=== PATIENT | male | born 1955 | race Hispanic/Latino ===

== ENCOUNTER 2020-04-02 13:11 | Inpatient (IN) | payer MEDICARE ==
[~2020-04-02] VITALS: Ht 175.3 cm; Wt 109.3 kg
[2020-04-02] MEDS ORDERED: LOSARTAN POTAS100 MG PO (13:33)
[2020-04-02] MEDS ORDERED: METFORMIN HCL850 MG PO (13:33)
[2020-04-02] MEDS ORDERED: ATORVASTATIN CA40 MG PO (13:33)
[2020-04-02] MEDS ORDERED: GABAPENTIN400 MG PO (13:33)
[2020-04-02] MEDS ORDERED: CENTRUM SILVER1 EAC6 PO (13:33)
[2020-04-02] MEDS ORDERED: METOPROLOL TART50 MG PO (13:33)
[2020-04-02] MEDS ORDERED: ASPIRIN81 MG PO (13:33)
--- NOTE | 2020-04-02 13:33 | Emergency Department Note ---
History of Present Illnes History of Present Illness Chief Complaint: Chest Pain History of Present Illness This is a 64 year old male Chief Complaint Comment Patient in from Dr. Castellanos's office with reports of chest pain with a stress test and abnormal EKG. Patient reports he was sent to Dr. Castellanos by his PCP for complaints of chest pain. Patient denies pain at this time. Positive history of stenting about 6 years ago. Historian: Patient Arrival Mode: Car Scoop Driver Required: No Onset (how long ago): day(s) Location: Chest Quality: Pressure Radiation: Reports non-radiation Severity: mild Onset quality: unable to specify Duration (how long): day(s) Timing of current episode: sporadic Progression: resolved Chronicity: new Context: Denies recent illness, Denies recent surgery Relieving factors: none Exacerbating factors: none Associated symptoms: Reports denies other symptoms Treatments prior to arrival: none Past Medical/Family History Physician Review I have reviewed the patient's past medical and family history. Any updates have been documented here. Past Medical History Recent Fever: No Clinical Suspicion of Infectio: No New/Unexplained Change in Ment: No Past Medical History: Hypertension, Diabetes, COPD, Hyperlipedemia Past Surgical History: PCI, Hernia Repair Review of Systems Review of Systems Constitutional: Reports no symptoms EENTM: Reports no symptoms Cardiovascular: Reports no symptoms Respiratory: Reports no symptoms Gastrointestinal: Reports no symptoms Genitourinary: Reports no symptoms Musculoskeletal: Reports no symptoms Integumentary: Reports no symptoms Neurological: Reports no symptoms Psychological: Reports no symptoms Endocrine: Reports no symptoms Hematological/Lymphatic: Reports no symptoms Physical Exam Related Data Allergies: Coded Allergies: No Known Allergies (Unverified , 04/02/20) Triage Vital Signs Vital Signs Date Time Temp Pulse Resp B/P (MAP) Pulse Ox O2 Delivery O2 Flow Rate FiO2 04/02/20 13:18 97.7 78 20 100 Room Air Vital signs reviewed: Yes Physical Exam CONSTITUTIONAL Constitutional: Present well-developed, Present well-nourished HENT HENT: Present normocephalic, Present atraumatic, Present oropharynx clear/mois t, Present nose normal HENT L/R: Present left ext ear normal, Present right ext ear normal EYES Eyes: Reports PERRL, Reports conjunctivae normal NECK Neck: Present ROM normal PULMONARY Pulmonary: Present effort normal, Present breath sounds normal CARDIOVASCULAR Cardiovascular: Present regular rhythm, Present heart sounds normal, Present capillary refill normal, Present normal rate GASTROINTESTINAL Abdominal: Present soft, Present nontender, Present bowel sounds normal GENITOURINARY Genitourinary: Present exam deferred SKIN Skin: Present warm, Present dry MUSCULOSKELETAL Musculoskeletal: Present ROM normal NEUROLOGICAL Neurological: Present alert, Present oriented x 3, Present no gross motor or sensory deficits PSYCHOLOGICAL Psychological: Present mood/affect normal, Present judgement normal Results Laboratory Lab results reviewed: Yes Imaging Imaging results reviewed: Yes Diagnostics Tests Diagnostic test(s) reviewed: Yes Procedures 12 Lead ECG Interpretation ECG Interpretation : Scoop Driver: Interpreted by ED physician Date: Apr 02, 2020 Rhythm: sinus rhythm Rate: normal QRS axis: normal ST segments normal: Yes T waves normal: Yes T wave inversion: aVL Clinical Impression: non-specific ECG Assessment & Plan Medical Decision Making SOLOMON 64-year-old male presents to emergency department via requested Dr. Castellanos for unstable angina. He states that over the last few days he'll get intermittent chest pain even while at rest. He currently has no chest pain or any complaints. Patient will be admitted for unstable angina to see Dr. Castellanos in the morning. No heparin per Jasmin. Admitted to Dr. Almazan Reassessment Reassessment time: 14:08 Reassessment Well appearing, NAd Assessment & Plan Final Impression: (1) Unstable angina Depart Disposition: ADMITTED Last Vital Signs Date Time Temp Pulse Resp B/P (MAP) Pulse Ox O2 Delivery O2 Flow Rate FiO2 04/02/20 13:18 97.7 78 20 100 Room Air Home Meds Reported Medications Multivit-Min/FA/Lycopen/Lutein (Centrum Silver Men Tablet) 1 Each Tablet, 1 TAB PO BID 04/02/20 Atorvastatin Calcium (ATORVASTATIN CALCIUM) 40 Mg Tablet, 40 MG PO HS, #30 TAB 04/02/20 Metformin Hcl (METFORMIN HCL) 850 Mg Tablet, 800 MG PO BID, #30 TAB 04/02/20 Gabapentin (GABAPENTIN) 400 Mg Capsule, 400 MG PO BID, #30 CAP 04/02/20 Metoprolol Tartrate (METOPROLOL TARTRATE) 50 Mg Tablet, 50 MG PO BID, TAB 04/02/20 Aspirin (ASPIRIN) 81 Mg Tab.chew, 1 TAB PO DAILY 04/02/20 Losartan Potassium (LOSARTAN POTASSIUM) 100 Mg Tablet, 100 MG PO DAILY, TAB 04/02/20 WALTER ERICKSON MD Apr 02, 2020 13:33
[2020-04-02 13:34] LABS: BASOPHILS % 0.3 % (0.0-1.0); EOSINOPHILS # (AUTO) 0.2 (0.0-0.4); EOSINOPHILS % 2.6 % (0.0-6.0); HEMATOCRIT 34.3 % (38.2-49.6); HEMOGLOBIN 11.1 g/dL (14.0-18.0); LYMPHOCYTES # (AUTO) 1.5 (1.0-3.2); LYMPHOCYTES % 16.9 % (18.0-39.1); MEAN CORPUSCULAR HEMOGLOBIN 30.6 pg (28-32); MEAN CORPUSCULAR HGB CONC 32.4 g/dL (31-35); MEAN CORPUSCULAR VOLUME 94.5 fL (81-99); MONOCYTES # (AUTO) 0.6 (0.2-0.8); MONOCYTES % 6.7 % (4.4-11.3); NEUTROPHILS # (AUTO) 6.6 (2.1-6.9); NEUTROPHILS % 73.1 % (38.7-80.0); PLATELET COUNT 243 x10e3/uL (140-360); RED BLOOD COUNT 3.63 x10e6/uL (4.3-5.7); RED CELL DISTRIBUTION WIDTH 13.2 % (11.7-14.4)
--- NOTE | 2020-04-02 13:55 | Diagnostic Imaging Report ---
X-ray chest frontal view History: Chest pain, abnormal EKG during stress test Comparison: None Findings: Lines and tubes: Not applicable Central airways: Unremarkable Cardiac silhouette: Unremarkable Mediastinal silhouettes: Unremarkable Pleura: No pleural effusion, pneumothorax or thickening Diaphragms: Unremarkable Lungs: No focal lung disease Skeletal structures: Unremarkable Extrathoracic soft tissues: Unremarkable Impression: As above. Signed by: Min Bess MD on 04/02/2020 1:52 PM
--- OUTSIDE RECORDS SUMMARY | 2020-04-02 13:55 | XMS REPORT | Continuity of Care Document ---
Author Author [facility] t Organization [facility] Address [address] [place] [address] Phone Unavailable Care Team Providers Care Trim Master Operator Name Role Phone Unavailable Unavailable Payers Payer Name Policy Type Policy Number Effective Date Expiration Date S ource Problems This patient has no known problems. Allergies, Adverse Reactions, Alerts Allergy Name Allergy Type Status Severity Reaction(s) Onset Date Inacti ve Date Treating Clinician Comments Source No Known Allergies DA Active U 2011-07-11 00:00:00 [facility] Medications This patient has no known medications. Procedures This patient has no known procedures. Results This patient has no known results.
[2020-04-02 13:56] LABS: ALBUMIN 3.6 g/dL (3.5-5.0); ALBUMIN/GLOBULIN RATIO 1.2 (0.8-2.0); ANION GAP 10.3 mmol/L (8-16); CALCIUM 9.2 mg/dL (8.4-10.2); CREATININE, SERUM 1.31 mg/dL (0.72-1.25); POTASSIUM 4.3 mmol/L (3.5-5.1)
--- OUTSIDE RECORDS SUMMARY | 2020-04-02 14:15 | XMS REPORT | Continuity of Care Document ---
Author Author [facility] t Organization [facility] Address [address] [place] [address] Phone Unavailable Care Team Providers Care Supervisor [employer] Name Role Phone Marci Love Unavailable Payers Payer Name Policy Type Policy Number Effective Date Expiration Date S ource Problems This patient has no known problems. Allergies, Adverse Reactions, Alerts Allergy Name Allergy Type Status Severity Reaction(s) Onset Date Inacti ve Date Treating Clinician Comments Source No Known Allergies DA Active U 2011-07-11 00:00:00 [facility] Medications This patient has no known medications. Procedures This patient has no known procedures. Results Test Description Test Time Test Comments Results Result Comments Source CHEST SINGLE (PORTABLE) 2020-04-02 13:51:00 [facility] 1955 Sex: M [facility] [address] [place] [address] Patient Name: JOVANNA JEFFREY MR #: [id number] : 1955 Age/Sex: 64/M Req #: [id number] [facility] Physician: Ordered by: Walter Love MD Report #: [id number] Location: ER Room/Bed: Procedure: [id number] DX/CHEST SINGLE (PORTABLE) Exam Date: 04/02/20 Exam Time: 1340 REPORT STATUS: Signed X-ray chest frontal view History: Chest pain, abnormal EKG during stress test Comparison: None Findings: Lines and tubes: Not applicable Central airways: Unremarkable Cardiac silhouette: Unremarkable Mediastinal silhouettes: Unremarkable Pleura: No pleural effusion, pneumothorax or thickening Diaphragms: Unremarkable Lungs: No focal lung disease Skeletal structures: Unremarkable Extrathoracic soft tissues: Unremarkable Impression: As above. Signed by: Robert Brooke MD on 04/02/2020 1:52 PM Dictated By: ROBERT BROOKE MD [id number] Transcribed By: NANDO on 04/02/20 1352 COPY TO: WALTER LOVE MD
[2020-04-02 15:25] VITALS: BP 149/80
[2020-04-02 15:35] VITALS: BP 149/80
--- NOTE | 2020-04-02 15:37 | NUR ---
patient received from ER via stretcher. family at BS. no c/o CP at this time. vitals stable. see admit assess. NPO after midnight for cath in am.
[2020-04-02] MEDS ORDERED: DEXTROSE 50% SYRINGE 50 ML IV PRN (16:30)
--- NOTE | 2020-04-02 17:43 | NUR ---
H&P cc: chest pain HPI: 64yoM, PCP , developed worsening chest pain, stress test reportedly done per patient, after testing sent to hospital for C. Pt does have mild chest discomfort; minimal sob. no dizziness PMH: HTN, HLD, Obesity, DM2, Diabetic neuropathy, CAD s/p 3 sents lsat 2013, current smoker, COPD PSHx: hernia; coronary stent Allergies; see emr Fh/Sh; ; 1ppd cigs meds; see MAR ROS; no f/c/s/n/V/D/EUCEDA/skin rash/confusion/dizziness/vision changes/leg pain/mood changes v/s; revd PE tired appearing anicteric ns1s2 REDUCED BS; SCATTERED WHEEZING soft n tnd 1+ LEG EDEMA skin dry n. affect a&ox3; [place] LABS/MEDS REVD A/P: 64yoM Unstable angina- cardioprotective meds; cardio consulted DAYAN vs CKD- f/u HLD- cont statin HTN- cont BB Obesity- 1/2 portion sizes outpt BMI 35- as above DM2- hab1c/lipids; hold metformin DIabetic neuropathy- gabapentin Peripheral edema- will need diuresis ProP: AC dispo; f/u SEAN CASTELLON MD PHD.
[2020-04-02 18:04] VITALS: BP 156/85
[2020-04-02] MEDS: METOPROLOL TARTRATE 50 MG TAB PO SCH (18:05)
[2020-04-02] MEDS: INSULIN REGULAR, HUMAN 100 UNIT/1 ML 3ML VIAL SQ SCH ×2 (18:06→20:45)
--- NOTE | 2020-04-02 18:24 | NUR ---
consent for cardiac cath obtained.
--- NOTE | 2020-04-02 19:35 | Consultation ---
DATE OF CONSULTATION: 04/02/2020 Cardiology Consultation REQUESTING PHYSICIAN: Star Almazan MD. REASON FOR CONSULTATION: Chest pain. HISTORY OF PRESENT ILLNESS: This is a 64-year-old male with history of coronary artery disease, status post multiple RCA PCI, hypertension, hyperlipidemia, diabetes mellitus, and COPD, who presents with complaints of chest pain. The patient reports he has been having chest pain for the last 2 weeks. He describes it as pressure, 3/10 in severity, lasting seconds at a time. On occasion, it will radiate to his arms, but otherwise he denies shortness of breath, nausea, or diaphoresis. He has not noticed any association with activity. He does note the pain occurs once or twice a day. In addition, he endorses shortness of breath when he carries heavy objects and edema with prolonged standing. REVIEW OF SYSTEMS: Negative except as per HPI. PAST MEDICAL HISTORY: 1. Coronary artery disease, status post HI and multiple RCA PCI. 2. Hypertension. 3. Hyperlipidemia. 4. Diabetes mellitus. 5. COPD. PAST SURGICAL HISTORY: Hernia repair. ALLERGIES: PLEASE SEE EMR. MEDICATIONS: Please see medication list. SOCIAL HISTORY: He smokes a pack a day for approximately 30 years. No alcohol or illicit drugs. PHYSICAL EXAMINATION: VITAL SIGNS: Temperature 97.8 degrees, pulse 80, respiratory rate 18, blood pressure 144/85, and oxygen saturation 95% on room air. GENERAL: Obese gentleman, in no acute distress, well-developed, well-nourished. HEENT: Normocephalic and atraumatic. Pupils are equal. No scleral icterus. NECK: Supple. No thyromegaly or cervical lymphadenopathy. No carotid bruits. LUNGS: Clear to auscultation bilaterally. No wheezes or crackles. CARDIOVASCULAR: Normal rate. Regular rhythm. No murmur. Normal S1 and S2. ABDOMEN: Soft and nontender. EXTREMITIES: Trace edema. NEUROLOGIC: Nonfocal exam. EKG; normal sinus rhythm, old inferior infarct. IMPRESSION: 1. Chest pain. 2. Coronary artery disease, status post RCA PCI. 3. Hypertension. 4. Hyperlipidemia. 5. Diabetes mellitus. 6. Chronic obstructive pulmonary disease. RECOMMENDATIONS: Trend troponin to rule out myocardial infarction. The patient had treadmill exercise done today in the office. He was noted to have horizontal ST-segment depression of 1 mm in V4 to V6. The patient will need to proceed with cardiac catheterization in the morning, n.p.o. after midnight. In the meantime, continue home cardiac medications. Monitor the patient closely on telemetry. Thank you for this consult. We will continue to continue to follow. Mary Baer MD ABS/RODRIGO /[id number]
[2020-04-02 20:30] VITALS: BP 133/67
[2020-04-02 20:45] VITALS: BP 133/67
[2020-04-02] MEDS: ATORVASTATIN 40 MG TAB PO SCH (20:45)
--- NOTE | 2020-04-02 20:45 | NUR ---
PATIENT RESTING IN BED IN STABLE CONDITION, NO SIGNS OF DISTRESS NOTED. VITALS ARE STABLE AND PATIENT VOICES NO PAIN AT THIS TIME. PATIENT IS VOICED UNDERSTANDING OF NPO AFTER MIDNIGHT FOR PROCEDURE THE NEXT DAY. BED IS IN LOWEST POSITION, BOTH SIDE RAILS ARE UP, CALL LIGHT IS WITHIN EASY REACH, WILL CONTINUE TO MONITOR.
[2020-04-02] MEDS ORDERED: NON-FORMULARY MEDICATION (Atorvastatin Calcium 40 MG) PO SCH (21:00)
[2020-04-03] VITALS (13 sets, daily range): BP systolic 127–153; BP diastolic 70–88
[2020-04-03 05:21] LABS: BASOPHILS % 0.3 % (0.0-1.0); EOSINOPHILS # (AUTO) 0.1 (0.0-0.4); HEMATOCRIT 35.7 % (38.2-49.6); HEMOGLOBIN 11.6 g/dL (14.0-18.0); LYMPHOCYTES # (AUTO) 1.6 (1.0-3.2); LYMPHOCYTES % 16.5 % (18.0-39.1); MEAN CORPUSCULAR HEMOGLOBIN 30.6 pg (28-32); MEAN CORPUSCULAR HGB CONC 32.5 g/dL (31-35); MEAN CORPUSCULAR VOLUME 94.2 fL (81-99); MONOCYTES # (AUTO) 0.5 (0.2-0.8); MONOCYTES % 5.6 % (4.4-11.3); NEUTROPHILS # (AUTO) 7.1 (2.1-6.9); NEUTROPHILS % 76.1 % (38.7-80.0); PLATELET COUNT 235 x10e3/uL (140-360); RED BLOOD COUNT 3.79 x10e6/uL (4.3-5.7); RED CELL DISTRIBUTION WIDTH 13.2 % (11.7-14.4)
[2020-04-03 05:42] LABS: ANION GAP 12.2 mmol/L (8-16); BLOOD UREA NITROGEN 26 mg/dL (7-26); BUN/CREATININE RATIO 22 (6-25); CALCIUM 8.9 mg/dL (8.4-10.2); CARBON DIOXIDE 30 mmol/L (22-29); CHLORIDE 104 mmol/L (98-107); CREATININE, SERUM 1.17 mg/dL (0.72-1.25); EST GLOMERULAR FILTRATION RATE > 60 ML/MIN (60-); GLUCOSE 84 mg/dL (74-118); POTASSIUM 4.2 mmol/L (3.5-5.1); SODIUM 142 mmol/L (136-145)
[2020-04-03 06:08] LABS: CHOL/HDL RATIO 3.6 (3.9-4.7)
--- NOTE | 2020-04-03 06:20 | NUR ---
IM- progress note O/N see below ROS; no f/c/s/n/V/D/EUCEDA/skin rash/confusion/dizziness/vision changes/leg pain/mood changes v/s; revd PE tired appearing anicteric ns1s2 REDUCED BS; SCATTERED WHEEZING soft n tnd 1+ LEG EDEMA skin dry n. affect a&ox3; [place] LABS/MEDS REVD A/P: 64yoM Unstable angina- cardioprotective meds; cardio consulted DAYAN vs CKD- f/u HLD- cont statin HTN- cont BB Obesity- 1/2 portion sizes outpt BMI 35- as above DM2- hab1c/LDL= ; hold metformin DIabetic neuropathy- gabapentin Peripheral edema- will need diuresis ProP: AC dispo; f/u [facility] SEAN CASTELLON MD PHD.
[2020-04-03] MEDS: INSULIN REGULAR, HUMAN 100 UNIT/1 ML 3ML VIAL SQ SCH ×4 (07:30→20:45)
[2020-04-03] MEDS: METOPROLOL TARTRATE 50 MG TAB PO SCH ×2 (09:00→17:47)
[2020-04-03] MEDS ORDERED: CLOPIDOGREL BISULFATE 75 MG TAB PO SCH (09:00)
[2020-04-03] MEDS ORDERED: LOSARTAN POTASSIUM 100 MG TAB PO SCH (09:00)
[2020-04-03] MEDS: GABAPENTIN 400 MG CAP PO SCH ×2 (09:00→17:46)
[2020-04-03] MEDS ORDERED: ASPIRIN 81 MG CHEW TAB PO SCH (09:00)
[2020-04-03] MEDS ORDERED: VERAPAMIL HCL 2.5 MG/ML 2 ML VIAL ONE (10:22)
[2020-04-03] MEDS ORDERED: MIDAZOLAM HCL 2 MG/2 ML VIAL ONE (10:22)
[2020-04-03] MEDS ORDERED: HEPARIN SOD/SOD CHLORIDE 2,000 ML ONE (10:23)
[2020-04-03] MEDS ORDERED: IOPAMIDOL 370 MG/ML 200 ML INFUS..BTL INJ ONE (10:23)
[2020-04-03] MEDS ORDERED: LIDOCAINE HCL 2% LOCAL 20 ML VIAL ONE (10:23)
[2020-04-03] MEDS ORDERED: SODIUM CHLORIDE 0.9% 1000ML 1,000 ML ONE (10:23)
[2020-04-03] MEDS ORDERED: FENTANYL CITRATE/PF 100MCG/2 ML INJ ONE (10:23)
--- NOTE | 2020-04-03 11:05 | NUR ---
PT OFF UNIT FOR PROCEDURE.
--- NOTE | 2020-04-03 12:05 | NUR ---
Report received from MAYTE RN. Alert oriented and appropriate, PERRLA, respirations even and unlabored to room air. Pulses x4 extremities equal and palpable . Cap fill brisk < 3 sec. + neurovascular function of right leg with secured 6fr sheath to right groin. No s/s of swelling or discolor at site. VS trend reviewed and medications given. Skin warm and dry integrity appears intact in general. IV left hand presents healthy w/o s/s of infiltration or complaint. Abdomen soft and supple. pt offered toileting, denies need to urinate or defecate. Resting supine. Pt verbalizes understanding of POC to return to floor. Educated try on baster light use. bed low and locked, side rails up x2 and call light at side. bedside monitoring initiated. pt using provided/ personal mask for COVID-19 mitigation. assumption of care -cgf
--- NOTE | 2020-04-03 12:15 | NUR ---
AR RTr pulling sheath. VS trend available, atropine at bedside. No gross deformities at this time.
--- NOTE | 2020-04-03 12:35 | NUR ---
Sheath pull complete uneventful. groin soft and supple, no discolor or bulging observed. right leg maintains color and pulses. Clean dressing applied. pt educated on bedrest and keeping leg strait.
--- NOTE | 2020-04-03 12:40 | NUR ---
Pt meets discharge criteria to return to floor. Report off to Faith RN. VS wnl, alert and oriented. Pt verbalizes understanding of bedrest instructions. Dr bojorquez saw pt as moving to floor. Overall general assess w/o gross outliers. Skin warm, dry, and intact. Right groin dressing soft w/o s/s of hematoma. Pedal pulses unchanged. IV intact. Pt maintains mask on for COVID 19 precautions being taken by bed on telemetry. Transfers w/o gross distress with chart. Request made form CD images for pt.
--- NOTE | 2020-04-03 13:04 | NUR ---
PT ARRIVED TO UNIT RESP EVEN AND UNLABORED NO C/O PAIN AT THIS TIME , PT RIGHT GROIN DRESSING CLEAN AND INTACT. CALL LIGHT IN REACH , WILL CONT TO MONITOR.
--- NOTE | 2020-04-03 13:34 | NUR ---
Spoke to [place] supervisor color making. States she will initiate transfer. CM left message for Dr. Almazan to notify him that Dr. Baer wants to transfer to [facility] for CABG.
--- NOTE | 2020-04-03 17:24 | Progress Note ---
DATE: Cardiology Progress Note SUBJECTIVE: The patient is feeling better. Denies any chest pain or shortness of breath. OBJECTIVE: VITAL SIGNS: He is afebrile, heart rate 78, respirations 16, blood pressure is 149/84, and oxygen saturation 99% on room air. GENERAL: Well-appearing, in no apparent distress. CARDIOVASCULAR: Regular rate and rhythm. LUNGS: Clear to auscultation. ABDOMEN: Soft, nontender, and nondistended. EXTREMITIES: No clubbing, cyanosis, or edema. VASCULAR: 2+ pulses. SKIN: Warm, dry, and intact. NEUROLOGIC: No focal deficits noted. LABORATORY DATA: Reviewed. CARDIOVASCULAR MEDICATIONS: Reviewed. Coronary angiography revealed multivessel coronary artery disease. IMPRESSION: 1. Precordial pain. 2. Coronary artery disease. 3. Hypertension. 4. Hyperlipidemia. 5. Diabetes mellitus. 6. Chronic obstructive pulmonary disease. RECOMMENDATIONS: Cardiac catheterization today revealed multivessel coronary artery disease. The patient will need to be off clopidogrel for 5 to 7 days. He will need coronary artery bypass graft surgery. We will need transfer to a facility that can provide this. DO OH Tucker/JOVANNYL /[id number]
--- NOTE | 2020-04-03 19:28 | NUR ---
WALKING ROUNDS COMPLETE, REPORT GIVEN TO ONCOMING NURSE.
[2020-04-03] MEDS: ATORVASTATIN 40 MG TAB PO SCH (20:45)
--- NOTE | 2020-04-03 21:12 | NUR ---
SPOKE TO [facility] TRANSFER [place]. SPOKE TO ALYSSA. PATIENT TRANSFER STILL PENDING BED AVAILABILITY. NO BED AVAILABLE AT THIS TIME. PM NURSE MADE AWARE.
[2020-04-04 00:44] VITALS: BP 128/73
--- NOTE | 2020-04-04 03:44 | NUR ---
PATIENT SAFELY ESCORTED VIA STRETCHER WITH EMS TO TRANSFER TO MEDICAL FACILITY. NO SIGNS OF DISTRESS NOTED.
--- NOTE | 2020-04-04 04:31 | NUR ---
AFTER PATIENT DEPARTED WITH EMS, LAB CALLED WITH A POSITIVE COVID RESULT FOR PATIENT. CALLED [facility] TO INFORM THEM OF PATIENT'S POSITIVE RESULT, HAD ALSO FAXED A COPY OF THE RESULTS WELL.
--- NOTE | 2020-04-04 08:49 | NUR ---
D/C summary Principal dx: Unstable angina- cardioprotective meds; cardio consulted Multivessel CAD- based on [facility]; send out to facility for CABG DAYAN vs CKD- f/u [facility]: HLD- cont statin HTN- cont BB Obesity- 1/2 portion sizes outpt BMI 35- as above DM2- hab1c/LDL= ; hold metformin DIabetic neuropathy- gabapentin Peripheral edema- will need diuresis ProP: AC dispo; f/u [facility] LC showed Multivessel Ds- transfer to facility for CABG d/c to nearby hospital for CABG stable f/u cardiology and CV surgery d/c>35mins SEAN CASTELLON MD PHD.
== END 2020-04-04 03:44 | disposition short-term general hospital (02) | DRG 287 ==
LOC: ER 13:14 → ERHOLD 14:13 → MED/SURG 14:58
PROVIDERS: ADMIT Internal Medicine; ATTEND Internal Medicine
PROC: 4A023N7 Measurement of Cardiac Sampling and Pressure, Left Heart, Percutaneous Approach (ICD-10-PCS; principal; 2020-04-03)
PROC: B2151ZZ Fluoroscopy of Left Heart using Low Osmolar Contrast (ICD-10-PCS; 2020-04-03)
PROC: B2111ZZ Fluoroscopy of Multiple Coronary Arteries using Low Osmolar Contrast (ICD-10-PCS; 2020-04-03)
DX: I25.110 Atherosclerotic heart disease of native coronary artery with unstable angina pectoris (principal); N17.9 Acute kidney failure, unspecified; F17.210 Nicotine dependence, cigarettes, uncomplicated; E78.5 Hyperlipidemia, unspecified; Z95.5 Presence of coronary angioplasty implant and graft; J44.9 Chronic obstructive pulmonary disease, unspecified; E11.9 Type 2 diabetes mellitus without complications; Z79.4 Long term (current) use of insulin; Z20.828 Contact with and (suspected) exposure to other viral communicable diseases; E11.40 Type 2 diabetes mellitus with diabetic neuropathy, unspecified; Z79.899 Other long term (current) drug therapy; E66.9 Obesity, unspecified; Z68.35 Body mass index [BMI] 35.0-35.9, adult; I12.9 Hypertensive chronic kidney disease with stage 1 through stage 4 chronic kidney disease, or unspecified chronic kidney disease; E11.22 Type 2 diabetes mellitus with diabetic chronic kidney disease; N18.9 Chronic kidney disease, unspecified
CPT/HCPCS: 36415; 71045; 80048; 80053; 80061; 83036; 84484; 85025; 93005; 93458; 99152; 99153; 99284; C1887; J1817; J2001; J2250; J3010; J7030; Q9967; U0002

== ENCOUNTER 2024-10-24 07:03 | Inpatient (IN) | payer MEDICARE ==
[2024-10-23 10:46] LABS: BASOPHILS % 0.4 % (0.0-1.0); EOSINOPHILS # (AUTO) 0.1 (0.0-0.4); EOSINOPHILS % 1.5 % (0.0-6.0); HEMATOCRIT 36.5 % (38.2-49.6); HEMOGLOBIN 10.5 g/dL (14.0-18.0); LYMPHOCYTES # (AUTO) 1.1 (1.0-3.2); LYMPHOCYTES % 13.8 % (18.0-39.1); MEAN CORPUSCULAR HEMOGLOBIN 26.1 pg (28-32); MEAN CORPUSCULAR HGB CONC 28.8 g/dL (31-35); MEAN CORPUSCULAR VOLUME 90.6 fL (81-99); MONOCYTES # (AUTO) 0.7 (0.2-0.8); MONOCYTES % 8.6 % (4.4-11.3); NEUTROPHILS # (AUTO) 6.2 (2.1-6.9); NEUTROPHILS % 75.3 % (38.7-80.0); PLATELET COUNT 226 x10e3/uL (140-360); RED BLOOD COUNT 4.03 x10e6/uL (4.3-5.7); RED CELL DISTRIBUTION WIDTH 16.5 % (11.7-14.4); WHITE BLOOD COUNT 8.16 x10e3/uL (4.8-10.8)
[2024-10-23 11:10] LABS: ANION GAP 13.5 mmol/L (8-16); CALCIUM 8.4 mg/dL (8.4-10.2); CREATININE, SERUM 1.16 mg/dL (0.72-1.25); POTASSIUM 4.5 mmol/L (3.5-5.1)
[~2024-10-24] VITALS: Ht 175.3 cm; Wt 122.2 kg
[~2024-10-24 07:03] MED LIST: ASPIRIN81 MG PO; ATORVASTATIN CA40 MG PO; CENTRUM SILVER1 EAC6 PO; CLOPIDOGREL75 MG PO; GABAPENTIN400 MG PO; LASIX40 MG PO; LOSARTAN POTAS100 MG PO; METFORMIN HCL850 MG PO; METOPROLOL TART50 MG PO; SOLIQUA 100 UNIT3 ML SQ
[2024-10-24] MEDS: SODIUM CHLORIDE 0.9% 1000ML 1,000 ML ONE (07:36)
[2024-10-24] MEDS: GENTAMICIN 80MG/NS 100 ML 200 ML IV ONE (07:37)
[2024-10-24] MEDS: PIPERACILLIN/TAZOBACTAM 3.375 GM VIAL ONE (07:37)
[2024-10-24] MEDS ORDERED: LIDOCAINE HCL 2% LOCAL INJ 5 ML SDV VIAL INJ ONE (08:42)
[2024-10-24] MEDS ORDERED: PROPOFOL IV EMULSION 10 MG/ML 20 ML VIAL ONE (08:42)
[2024-10-24] MEDS ORDERED: FENTANYL CITRATE/PF 100MCG/2 ML INJ ONE (08:42)
[2024-10-24] MEDS ORDERED: ONDANSETRON HCL INJ 2MG/ML 2ML 2 MG/ML VIAL ONE (11:12)
[2024-10-24] MEDS ORDERED: FAMOTIDINE 20 MG/2 ML VIAL IV ONE (11:12)
[2024-10-24] MEDS ORDERED: GLYCOPYRROLATE INJ 0.2 MG/ML VIAL ONE (11:12)
[2024-10-24] MEDS ORDERED: DEXAMETHASONE SOD PHOS INJ 4 MG/ML SDV ONE (11:12)
[2024-10-24] MEDS ORDERED: PHENYLEPHRINE HCL 1% 10 MG/ML VIAL ONE (11:25)
[2024-10-24] MEDS ORDERED: ALBUTEROL 90 MCG/ACT INHALER INH ONE (12:32)
[2024-10-24] MEDS ORDERED: ROCURONIUM BROMIDE 1 ML IV ONE (12:39)
[2024-10-24] MEDS: FENTANYL CITRATE/PF 100MCG/2 ML INJ IV ONE (13:18)
[2024-10-24] MEDS ORDERED: DIPHENHYDRAMINE HCL 25 MG CAP PO PRN (13:30)
[2024-10-24] MEDS ORDERED: ACETAMINOPHEN 1000 MG/100 ML IV PRN (13:30)
[2024-10-24] MEDS ORDERED: ONDANSETRON HCL INJ 2MG/ML 2ML 2 MG/ML VIAL IV PRN (13:30)
[2024-10-24] MEDS: HYDROCODONE PO ONE (14:12)
[2024-10-24] MEDS: APAP PO ONE (14:12)
[2024-10-24 14:41] LABS: BASOPHILS % 0.2 % (0.0-1.0); EOSINOPHILS # (AUTO) 0.1 (0.0-0.4); EOSINOPHILS % 0.5 % (0.0-6.0); HEMATOCRIT 36.7 % (38.2-49.6); HEMOGLOBIN 10.5 g/dL (14.0-18.0); LYMPHOCYTES # (AUTO) 1.3 (1.0-3.2); LYMPHOCYTES % 13.8 % (18.0-39.1); MEAN CORPUSCULAR HEMOGLOBIN 25.9 pg (28-32); MEAN CORPUSCULAR HGB CONC 28.6 g/dL (31-35); MEAN CORPUSCULAR VOLUME 90.6 fL (81-99); MONOCYTES # (AUTO) 0.3 (0.2-0.8); MONOCYTES % 3.6 % (4.4-11.3); NEUTROPHILS # (AUTO) 7.5 (2.1-6.9); NEUTROPHILS % 81.5 % (38.7-80.0); PLATELET COUNT 210 x10e3/uL (140-360); RED BLOOD COUNT 4.05 x10e6/uL (4.3-5.7); RED CELL DISTRIBUTION WIDTH 16.7 % (11.7-14.4); WHITE BLOOD COUNT 9.19 x10e3/uL (4.8-10.8)
[2024-10-24 15:06] LABS: CALCIUM 7.9 mg/dL (8.4-10.2); CREATININE, SERUM 1.15 mg/dL (0.72-1.25); MAGNESIUM 1.9 MG/DL (1.3-2.1)
[2024-10-24] MEDS: SENNA-S TABLET PO SCH (17:18)
[2024-10-24] MEDS: HYDROCODONE/APAP 10MG-325MG TAB ONE (17:18)
[2024-10-24] MEDS: SODIUM CHLORIDE 0.9% 1000ML 1,000 ML IV SCH (17:18)
[2024-10-24] MEDS: FENTANYL CITRATE/PF 100MCG/2 ML INJ ONE (17:19)
[2024-10-24] MEDS ORDERED: LEVOTHYROXINE50 MCG PO (18:10)
[2024-10-24] MEDS ORDERED: FLOMAX0.4 MG PO (18:10)
[2024-10-24] MEDS ORDERED: K-DUR10 MEQ PO (18:10)
[2024-10-24] MEDS ORDERED: PIOGLITAZONE HC45 MG PO (18:13)
[2024-10-24 18:21] VITALS: BP 149/72; PULSE 79; RESP 18; TEMP 97.4; O2SAT 98
[2024-10-24 18:24] VITALS: BP 178/90; PULSE 81; RESP 18; TEMP 97; O2SAT 97
[2024-10-24 20:00] VITALS: BP 162/82; PULSE 91; RESP 20; TEMP 97.3; O2SAT 94
[2024-10-24 21:00] VITALS: BP 162/82; PULSE 91; RESP 20; TEMP 97.3; O2SAT 94
[2024-10-24 23:47] VITALS: PULSE 83; RESP 18; O2SAT 93
[2024-10-25] VITALS (9 sets, daily range): BP systolic 116–153; BP diastolic 66–95; PULSE 68–84; RESP 18–20; TEMP 97.6–98.1; O2SAT 92–100
[2024-10-25] MEDS ORDERED: DEXTROSE 50% SYRINGE 50 ML IV PRN (07:45)
[2024-10-25 08:14] LABS: BASOPHILS % 0.2 % (0.0-1.0); EOSINOPHILS % 0.1 % (0.0-6.0); HEMATOCRIT 34.2 % (38.2-49.6); HEMOGLOBIN 9.6 g/dL (14.0-18.0); LYMPHOCYTES # (AUTO) 1.2 (1.0-3.2); LYMPHOCYTES % 13.8 % (18.0-39.1); MEAN CORPUSCULAR HEMOGLOBIN 25.8 pg (28-32); MEAN CORPUSCULAR HGB CONC 28.1 g/dL (31-35); MEAN CORPUSCULAR VOLUME 91.9 fL (81-99); MONOCYTES # (AUTO) 0.7 (0.2-0.8); NEUTROPHILS % 77.6 % (38.7-80.0); PLATELET COUNT 215 x10e3/uL (140-360); RED BLOOD COUNT 3.72 x10e6/uL (4.3-5.7); RED CELL DISTRIBUTION WIDTH 16.8 % (11.7-14.4); WHITE BLOOD COUNT 8.99 x10e3/uL (4.8-10.8)
[2024-10-25 08:45] LABS: ANION GAP 13.5 mmol/L (8-16); CALCIUM 7.8 mg/dL (8.4-10.2); CREATININE, SERUM 1.49 mg/dL (0.72-1.25); POTASSIUM 4.5 mmol/L (3.5-5.1)
[2024-10-25] MEDS: METOPROLOL TARTRATE 25 MG TAB PO SCH (10:36)
[2024-10-25] MEDS: INSULIN LISPRO 100 UNIT/1 ML 3ML VIAL SQ SCH (11:59)
[2024-10-25] MEDS: LEVOTHYROXINE SODIUM 112 MCG TAB PO SCH (12:20)
[2024-10-25] MEDS: LEVOTHYROXINE SODIUM 25 MCG TABLET PO SCH (12:20)
[2024-10-25] MEDS: TAMSULOSIN HCL 0.4 MG CAP PO SCH (17:05)
[2024-10-25] MEDS: PHENAZOPYRIDINE HCL 100 MG TAB PO PRN (18:27)
[2024-10-25] MEDS: ATORVASTATIN 40 MG TAB PO SCH (21:26)
[2024-10-25] MEDS: INSULIN GLARGINE 100 UNITS/ML VIAL SQ SCH (21:36)
[2024-10-26] VITALS (12 sets, daily range): BP systolic 134–170; BP diastolic 69–87; PULSE 64–90; RESP 18–20; TEMP 97.7–99; O2SAT 92–98
[2024-10-26 06:10] LABS: ANION GAP 14.3 mmol/L (8-16); CALCIUM 8.2 mg/dL (8.4-10.2); CREATININE, SERUM 1.5 mg/dL (0.72-1.25); POTASSIUM 4.3 mmol/L (3.5-5.1)
[2024-10-26 06:49] LABS: BASOPHILS % 0.3 % (0.0-1.0); EOSINOPHILS # (AUTO) 0.1 (0.0-0.4); HEMOGLOBIN 9.5 g/dL (14.0-18.0); LYMPHOCYTES # (AUTO) 1.5 (1.0-3.2); MEAN CORPUSCULAR HEMOGLOBIN 25.7 pg (28-32); MEAN CORPUSCULAR HGB CONC 28.8 g/dL (31-35); MEAN CORPUSCULAR VOLUME 89.4 fL (81-99); MONOCYTES # (AUTO) 0.8 (0.2-0.8); MONOCYTES % 8.5 % (4.4-11.3); NEUTROPHILS # (AUTO) 7.3 (2.1-6.9); NEUTROPHILS % 74.9 % (38.7-80.0); PLATELET COUNT 210 x10e3/uL (140-360); RED BLOOD COUNT 3.69 x10e6/uL (4.3-5.7); RED CELL DISTRIBUTION WIDTH 16.8 % (11.7-14.4); WHITE BLOOD COUNT 9.73 x10e3/uL (4.8-10.8)
[2024-10-26] MEDS ORDERED: LOSARTAN POTASSIUM 100 MG TAB PO SCH (09:00)
[2024-10-26] MEDS: FUROSEMIDE 40 MG TAB PO SCH (09:02)
[2024-10-26] MEDS: POTASSIUM CITRATE ER 10 MEQ TAB PO SCH (09:02)
[2024-10-26] MEDS: METOPROLOL TARTRATE 50 MG TAB PO SCH (09:06)
[2024-10-27] MEDS ORDERED: IOPAMIDOL 370 MG/ML 100 ML INFUS..BTL INJ ONE (04:32)
[2024-10-27] MEDS ORDERED: SODIUM CHLORIDE 0.9% 250ML 250 ML ONE (04:32)
[2024-10-27 06:15] VITALS: PULSE 75; RESP 21; O2SAT 94
[2024-10-27 06:53] LABS: BASOPHILS % 0.3 % (0.0-1.0); EOSINOPHILS # (AUTO) 0.1 (0.0-0.4); EOSINOPHILS % 1.3 % (0.0-6.0); HEMATOCRIT 37.5 % (38.2-49.6); HEMOGLOBIN 10.5 g/dL (14.0-18.0); LYMPHOCYTES # (AUTO) 0.8 (1.0-3.2); LYMPHOCYTES % 12.8 % (18.0-39.1); MEAN CORPUSCULAR HEMOGLOBIN 26.4 pg (28-32); MEAN CORPUSCULAR VOLUME 94.5 fL (81-99); MONOCYTES # (AUTO) 0.6 (0.2-0.8); MONOCYTES % 8.6 % (4.4-11.3); NEUTROPHILS # (AUTO) 4.9 (2.1-6.9); NEUTROPHILS % 76.7 % (38.7-80.0); PLATELET COUNT 208 x10e3/uL (140-360); RED BLOOD COUNT 3.97 x10e6/uL (4.3-5.7); WHITE BLOOD COUNT 6.39 x10e3/uL (4.8-10.8)
[2024-10-27 07:22] LABS: CALCIUM 8.2 mg/dL (8.4-10.2); CREATININE, SERUM 1.22 mg/dL (0.72-1.25)
[2024-10-27] MEDS ORDERED: METOPROLOL TARTRATE 50 MG TAB PO STA (08:03)
[2024-10-27] MEDS: METOPROLOL TARTRATE 50 MG TAB PO SCH (08:50)
[2024-10-27 09:01] VITALS: BP 164/94; PULSE 90; RESP 19; TEMP 97.8; O2SAT 93
[2024-10-27 11:40] VITALS: BP 148/66; PULSE 65; RESP 19; TEMP 97.8; O2SAT 98
[2024-10-27 19:30] VITALS: BP 174/82; PULSE 85; RESP 18; TEMP 97.7; O2SAT 95
[2024-10-27 20:00] VITALS: BP 174/82; PULSE 85; RESP 18; TEMP 97.7; O2SAT 95
[2024-10-27 23:09] VITALS: BP 139/74; PULSE 66; RESP 18; TEMP 97.7; O2SAT 96
[2024-10-28 03:18] VITALS: BP 171/78; PULSE 77; RESP 17; TEMP 97.7; O2SAT 95
[2024-10-28 06:09] VITALS: PULSE 65; RESP 21; O2SAT 95
[2024-10-28 06:59] LABS: BASOPHILS % 0.1 % (0.0-1.0); EOSINOPHILS # (AUTO) 0.1 (0.0-0.4); EOSINOPHILS % 1.5 % (0.0-6.0); HEMATOCRIT 33.5 % (38.2-49.6); HEMOGLOBIN 9.9 g/dL (14.0-18.0); LYMPHOCYTES # (AUTO) 1.2 (1.0-3.2); LYMPHOCYTES % 15.6 % (18.0-39.1); MEAN CORPUSCULAR HEMOGLOBIN 26.2 pg (28-32); MEAN CORPUSCULAR HGB CONC 29.6 g/dL (31-35); MEAN CORPUSCULAR VOLUME 88.6 fL (81-99); MONOCYTES # (AUTO) 0.6 (0.2-0.8); MONOCYTES % 8.1 % (4.4-11.3); NEUTROPHILS # (AUTO) 5.6 (2.1-6.9); NEUTROPHILS % 74.2 % (38.7-80.0); PLATELET COUNT 213 x10e3/uL (140-360); RED BLOOD COUNT 3.78 x10e6/uL (4.3-5.7); RED CELL DISTRIBUTION WIDTH 16.9 % (11.7-14.4); WHITE BLOOD COUNT 7.51 x10e3/uL (4.8-10.8)
[2024-10-28 07:31] LABS: ANION GAP 12.9 mmol/L (8-16); CALCIUM 8.5 mg/dL (8.4-10.2); CREATININE, SERUM 1.15 mg/dL (0.72-1.25); POTASSIUM 3.9 mmol/L (3.5-5.1)
[2024-10-28 07:48] VITALS: BP 145/85; PULSE 75; RESP 19; TEMP 98.1; O2SAT 93
[2024-10-28] MEDS: NIFEDIPINE CR 30 MG TAB PO SCH (10:30)
[2024-10-28 10:31] VITALS: BP 145/85; PULSE 79; RESP 19; TEMP 98.1; O2SAT 93
[2024-10-28 11:46] VITALS: BP 134/69; PULSE 57; RESP 17; TEMP 98.3; O2SAT 97
[2024-10-28] MEDS: ACETAMINOPHEN/CODEINE 300MG - 30MG TAB PO PRN (13:07)
[2024-10-28 15:52] VITALS: BP 151/76; PULSE 64; RESP 19; TEMP 98.2; O2SAT 96
== END 2024-10-28 18:17 | disposition home or self-care (01) | DRG 713 ==
LOC: OR 07:03 → PACU V 13:19 → MED/SURG 17:06
PROVIDERS: ADMIT Internal Medicine; ATTEND Internal Medicine
PROC: BT141ZZ Fluoroscopy of Kidneys, Ureters and Bladder using Low Osmolar Contrast (ICD-10-PCS; 2024-10-24)
PROC: 0T9B70Z Drainage of Bladder with Drainage Device, Via Natural or Artificial Opening (ICD-10-PCS; 2024-10-24)
PROC: 0VB08ZZ Excision of Prostate, Via Natural or Artificial Opening Endoscopic (ICD-10-PCS; principal; 2024-10-24 11:01)
PROC: 0VB03ZX Excision of Prostate, Percutaneous Approach, Diagnostic (ICD-10-PCS; 2024-10-24 11:01)
PROC: 0T7D8ZZ Dilation of Urethra, Via Natural or Artificial Opening Endoscopic (ICD-10-PCS; 2024-10-24 11:01)
DX: N40.1 Benign prostatic hyperplasia with lower urinary tract symptoms (principal); K86.3 Pseudocyst of pancreas; N17.9 Acute kidney failure, unspecified; D73.89 Other diseases of spleen; I25.10 Atherosclerotic heart disease of native coronary artery without angina pectoris; I10 Essential (primary) hypertension; R31.0 Gross hematuria; N50.89 Other specified disorders of the male genital organs; K40.90 Unilateral inguinal hernia, without obstruction or gangrene, not specified as recurrent; E78.5 Hyperlipidemia, unspecified; E11.9 Type 2 diabetes mellitus without complications; E03.9 Hypothyroidism, unspecified; E66.9 Obesity, unspecified; Z68.39 Body mass index [BMI] 39.0-39.9, adult; N35.919 Unspecified urethral stricture, male, unspecified site; Z79.4 Long term (current) use of insulin; Z79.82 Long term (current) use of aspirin; Z79.02 Long term (current) use of antithrombotics/antiplatelets; Z79.890 Hormone replacement therapy; Z79.84 Long term (current) use of oral hypoglycemic drugs; Z95.1 Presence of aortocoronary bypass graft
CPT/HCPCS: 36415; 71046; 74178; 74420; 76872; 76998; 80048; 82948; 83735; 85025; 88305; 93005; 94660; 94799; 99252; C1758; C1769; J1100; J1308; J1580; J2003; J2371; J2405; J2543; J7030; J7050; Q9967

== ENCOUNTER 2024-11-05 10:22 | Emergency (ER) | payer MEDICARE ==
[~2024-11-05] VITALS: Ht 175.3 cm; Wt 122.0 kg
[~2024-11-05 10:22] MED LIST changes: +FLOMAX0.4 MG PO; +K-DUR10 MEQ PO; +LEVOTHYROXINE50 MCG PO; +PIOGLITAZONE HC45 MG PO
[2024-11-05 10:24] VITALS: TEMP 97.4
[2024-11-05] MEDS ORDERED: LEVOFLOXACIN750 MG PO (11:12)
[2024-11-05 15:03] VITALS: PULSE 82; RESP 18; O2SAT 100
== END 2024-11-05 15:04 | disposition home or self-care (01) ==
LOC: ER 10:27
DX: N50.89 Other specified disorders of the male genital organs (principal); N43.3 Hydrocele, unspecified; K40.20 Bilateral inguinal hernia, without obstruction or gangrene, not specified as recurrent; I10 Essential (primary) hypertension; E11.9 Type 2 diabetes mellitus without complications; E78.5 Hyperlipidemia, unspecified; J44.9 Chronic obstructive pulmonary disease, unspecified; I50.9 Heart failure, unspecified; Z95.5 Presence of coronary angioplasty implant and graft
CPT/HCPCS: 76870; 93976; 99283

== ENCOUNTER 2024-12-08 20:39 | Emergency (ER) | payer MEDICARE ==
[~2024-12-08] VITALS: Ht 175.3 cm; Wt 131.1 kg
[2024-12-08 20:39] VITALS: PULSE 68; RESP 20; TEMP 98.5
[~2024-12-08 20:39] MED LIST changes: +LEVOFLOXACIN750 MG PO
[2024-12-08 21:39] VITALS: BP 137/72; PULSE 65; RESP 20; TEMP 98; O2SAT 100
== END 2024-12-08 21:55 | disposition home or self-care (01) ==
LOC: ER 21:23
DX: Z46.6 Encounter for fitting and adjustment of urinary device (principal); I10 Essential (primary) hypertension; E11.9 Type 2 diabetes mellitus without complications; J44.9 Chronic obstructive pulmonary disease, unspecified; I50.9 Heart failure, unspecified; E78.5 Hyperlipidemia, unspecified; Z95.5 Presence of coronary angioplasty implant and graft
CPT/HCPCS: 87086; 99283

== ENCOUNTER 2024-12-16 13:40 | Inpatient (IN) | payer MEDICARE ==
[~2024-12-16] VITALS: Ht 175.3 cm; Wt 118.6 kg
[2024-12-16] MEDS ORDERED: SODIUM CHLORIDE FLUSH 10 ML SYR IV PRN (15:00)
[2024-12-16 15:04] LABS: BASOPHILS % 0.0 % (0.0-1.0); EOSINOPHILS % 2.0 % (0.0-6.0); LYMPHOCYTES % 14.6 % (18.0-39.1); MONOCYTES % 8.3 % (4.4-11.3); NEUTROPHILS % 74.6 % (38.7-80.0); RED CELL DISTRIBUTION WIDTH 21.1 % (11.7-14.4)
[2024-12-16 15:22] LABS: EST GLOMERULAR FILTRATION RATE 38.0 ML/MIN (>=60)
[2024-12-16] MEDS ORDERED: FUROSEMIDE INJ 10 MG/ML 4 ML VIAL IV ONE (16:45)
[2024-12-16] MEDS ORDERED: ENOXAPARIN SODIUM INJ 100 MG/ML SYR SC SCH (16:45)
[2024-12-16] MEDS ORDERED: SODIUM CHLORIDE FLUSH 10 ML SYR INJ PRN (18:00)
[2024-12-16] MEDS: FUROSEMIDE INJ 10 MG/ML 4 ML VIAL IV ONE (18:23)
[2024-12-16 20:30] VITALS: PULSE 70; RESP 20; TEMP 98.4
[2024-12-16 23:30] VITALS: BP 141/76; PULSE 107; RESP 18; TEMP 97.4; O2SAT 100
[2024-12-16 23:39] VITALS: BP 136/74; O2SAT 100
[2024-12-16] MEDS ORDERED: HYDRALAZINE HCL 20 MG/ML VIAL IV PRN (23:45)
[2024-12-16] MEDS ORDERED: SIMETHICONE 80 MG CHEW PO PRN (23:45)
[2024-12-16] MEDS ORDERED: POTASSIUM CHLORIDE 20 MEQ TAB CR PO PRN (23:45)
[2024-12-16] MEDS ORDERED: DOCUSATE SODIUM 100 MG CAP PO PRN (23:45)
[2024-12-16] MEDS ORDERED: ONDANSETRON HCL INJ 2MG/ML 2ML 2 MG/ML VIAL IV PRN (23:45)
[2024-12-16] MEDS ORDERED: DEXTROSE 50% SYRINGE 50 ML IV PRN ×2 (23:45)
[2024-12-17] MEDS: FUROSEMIDE INJ 10 MG/ML 2 ML VIAL IV SCH (01:26)
[2024-12-17] MEDS: HYDROCODONE/APAP 5MG-325MG TAB PO PRN (01:27)
[2024-12-17 03:21] VITALS: BP 133/63; PULSE 71; RESP 18; TEMP 97.4; O2SAT 100
[2024-12-17] MEDS: LEVOTHYROXINE SODIUM 112 MCG TAB PO SCH (05:40)
[2024-12-17] MEDS: LEVOTHYROXINE SODIUM 25 MCG TABLET PO SCH (05:41)
[2024-12-17 07:01] LABS: BASOPHILS % 0.3 % (0.0-1.0); EOSINOPHILS % 2.1 % (0.0-6.0); LYMPHOCYTES % 19.7 % (18.0-39.1); MONOCYTES % 12.8 % (4.4-11.3); NEUTROPHILS % 64.4 % (38.7-80.0); RED CELL DISTRIBUTION WIDTH 20.7 % (11.7-14.4)
[2024-12-17 07:20] LABS: EST GLOMERULAR FILTRATION RATE 38.0 ML/MIN (>=60)
[2024-12-17] MEDS: INSULIN LISPRO 100 UNIT/1 ML 3ML VIAL SQ SCH (07:30)
[2024-12-17 07:42] LABS: CHOL/HDL RATIO 3.2 (3.9-4.7); LDL CHOLESTEROL 56.0 MG/DL (60-130)
[2024-12-17 08:00] VITALS: BP 130/67; PULSE 78; RESP 17; TEMP 98.4; O2SAT 100
[2024-12-17] MEDS: PANTOPRAZOLE SOD 40 MG TABEC PO SCH (08:51)
[2024-12-17] MEDS: CLOPIDOGREL BISULFATE 75 MG TAB PO SCH (08:51)
[2024-12-17] MEDS: ASPIRIN 81 MG CHEW TAB PO SCH (08:51)
[2024-12-17] MEDS ORDERED: LEVOTHYROXINE SODIUM 112 MCG TAB PO SCH (09:00)
[2024-12-17 09:23] LABS: PLATELET ESTIMATE ADEQUATE; PLATELET MORPHOLOGY COMMENT NORMAL; RBC MORPHOLOGY COMMENT ABNORMAL
[2024-12-17 12:00] VITALS: BP 139/71; PULSE 80; RESP 18; TEMP 97.9; O2SAT 99
[2024-12-17] MEDS: FUROSEMIDE INJ 100 MG in SODIUM CHLORIDE 0.9% 90 ML IV SCH (12:14)
[2024-12-17 16:00] VITALS: BP 129/64; PULSE 77; RESP 17; TEMP 98.2; O2SAT 100
[2024-12-17] MEDS: ENOXAPARIN SOD INJ 40 MG/0.4 ML SYR SC SCH (17:03)
[2024-12-17 20:00] VITALS: BP 145/59; PULSE 72; RESP 18; TEMP 98.6; O2SAT 95
[2024-12-17] MEDS: ATORVASTATIN 40 MG TAB PO SCH (21:12)
[2024-12-17] MEDS: DOXYCYCLINE HYCLATE TABLET 100 MG TAB PO SCH (21:12)
[2024-12-17 22:30] VITALS: PULSE 75; RESP 12; O2SAT 98
[2024-12-18] VITALS (12 sets, daily range): BP systolic 112–163; BP diastolic 47–81; PULSE 72–98; RESP 17–20; TEMP 97.4–98.7; O2SAT 94–100
[2024-12-18 06:37] LABS: BASOPHILS % 0.2 % (0.0-1.0); EOSINOPHILS % 1.1 % (0.0-6.0); LYMPHOCYTES % 17.8 % (18.0-39.1); MONOCYTES % 10.7 % (4.4-11.3); NEUTROPHILS % 69.3 % (38.7-80.0); RED CELL DISTRIBUTION WIDTH 20.2 % (11.7-14.4)
[2024-12-18 07:05] LABS: EST GLOMERULAR FILTRATION RATE 45.0 ML/MIN (>=60)
[2024-12-19] VITALS (27 sets, daily range): BP systolic 113–147; BP diastolic 50–99; PULSE 60–112; RESP 15–27; TEMP 97.4–98.8; O2SAT 91–100
[2024-12-19] MEDS: ACETAMINOPHEN 325 MG TAB PO PRN (01:56)
[2024-12-19] MEDS: TAMSULOSIN HCL 0.4 MG CAP PO SCH (09:40)
[2024-12-19] MEDS: METOPROLOL TARTRATE 25 MG TAB PO SCH (09:43)
[2024-12-19] MEDS: ALBUTEROL/IPRATROPIUM 3 ML NEB NEB PRN (10:20)
[2024-12-19] MEDS: METOLAZONE 5 MG TAB PO ONE (12:58)
[2024-12-19 14:09] LABS: EST GLOMERULAR FILTRATION RATE 54.0 ML/MIN (>=60)
[2024-12-19 17:13] LABS: ABG PH 7.27 (7.35-7.45)
[2024-12-19 17:14] LABS: ABG BASE EXCESS 12.0 mmol/L (-2 - 3); ABG HCO3 39 mmol/L (22-26); ABG OXYGEN SATURATION 99.0 % (95-98); ABG PCO2 85 mmHg (35-45); ABG PO2 139 mmHg (80-105); ABG TCO2 42
[2024-12-20] VITALS (30 sets, daily range): BP systolic 107–166; BP diastolic 50–99; PULSE 66–124; RESP 15–37; TEMP 97.2–99.4; O2SAT 95–100
[2024-12-20 00:04] LABS: ABG BASE EXCESS 16.0 mmol/L (-2 - 3); ABG HCO3 40 mmol/L (22-26); ABG OXYGEN SATURATION 95.0 % (95-98); ABG PCO2 56 mmHg (35-45); ABG PH 7.46 (7.35-7.45); ABG PO2 75 mmHg (80-105); ABG TCO2 41
[2024-12-20 05:19] LABS: BASOPHILS % 0.2 % (0.0-1.0); EOSINOPHILS % 0.3 % (0.0-6.0); LYMPHOCYTES % 19.3 % (18.0-39.1); MONOCYTES % 8.8 % (4.4-11.3); NEUTROPHILS % 71.1 % (38.7-80.0); RED CELL DISTRIBUTION WIDTH 19.4 % (11.7-14.4)
[2024-12-20 05:42] LABS: EST GLOMERULAR FILTRATION RATE 56.0 ML/MIN (>=60)
[2024-12-20] MEDS: POTASSIUM CHLORIDE 20 MEQ TAB CR PO ONE (14:33)
[2024-12-20] MEDS: ACETAZOLAMIDE 250 MG TAB PO SCH (16:32)
[2024-12-20] MEDS: METOLAZONE 5 MG TAB PO ONE (16:32)
[2024-12-20] MEDS: DIPHENHYDRAMINE HCL 25 MG CAP PO PRN (21:01)
[2024-12-21] VITALS (17 sets, daily range): BP systolic 76–132; BP diastolic 55–101; PULSE 121–125; RESP 15–25; TEMP 97.3–99; O2SAT 97–100
[2024-12-21 05:16] LABS: BASOPHILS % 0.2 % (0.0-1.0); EOSINOPHILS % 1.8 % (0.0-6.0); LYMPHOCYTES % 25.7 % (18.0-39.1); MONOCYTES % 10.6 % (4.4-11.3); NEUTROPHILS % 61.4 % (38.7-80.0); RED CELL DISTRIBUTION WIDTH 19.1 % (11.7-14.4)
[2024-12-21 05:49] LABS: EST GLOMERULAR FILTRATION RATE 51.0 ML/MIN (>=60)
[2024-12-21] MEDS: FLUCONAZOLE 100 MG TAB PO ONE (15:59)
[2024-12-21] MEDS: POTASSIUM CHLORIDE 20 MEQ TAB CR PO STA (15:59)
[2024-12-21] MEDS: ACETAZOLAMIDE 250 MG TAB PO SCH (18:41)
[2024-12-21] MEDS: NYSTATIN 15 GM POWDER UD BTL TOP SCH (18:42)
[2024-12-21] MEDS: MELATONIN 5 MG TABLET PO PRN (23:09)
[2024-12-22] VITALS (19 sets, daily range): BP systolic 88–125; BP diastolic 50–83; PULSE 62–129; RESP 13–26; TEMP 97.8–98.7; O2SAT 95–100
[2024-12-22 07:41] LABS: BASOPHILS % 0.2 % (0.0-1.0); EOSINOPHILS % 2.5 % (0.0-6.0); LYMPHOCYTES % 27.3 % (18.0-39.1); MONOCYTES % 8.4 % (4.4-11.3); NEUTROPHILS % 61.1 % (38.7-80.0); RED CELL DISTRIBUTION WIDTH 18.9 % (11.7-14.4)
[2024-12-22 08:09] LABS: EST GLOMERULAR FILTRATION RATE 43.0 ML/MIN (>=60)
[2024-12-22] MEDS: SODIUM CHLORIDE 0.9% 1000ML 1,000 ML IV SCH (12:04)
[2024-12-22] MEDS: POTASSIUM CHLORIDE 20 MEQ TAB CR PO STA (14:48)
[2024-12-23] VITALS (15 sets, daily range): BP systolic 99–136; BP diastolic 54–87; PULSE 10–122; RESP 11–26; TEMP 97.7–98.2; O2SAT 94–100
[2024-12-23 08:34] LABS: BASOPHILS % 0.5 % (0.0-1.0); EOSINOPHILS % 2.8 % (0.0-6.0); LYMPHOCYTES % 27.3 % (18.0-39.1); MONOCYTES % 7.8 % (4.4-11.3); NEUTROPHILS % 61.0 % (38.7-80.0); RED CELL DISTRIBUTION WIDTH 18.8 % (11.7-14.4)
[2024-12-23 08:57] LABS: EST GLOMERULAR FILTRATION RATE 47.0 ML/MIN (>=60)
[2024-12-24] VITALS (16 sets, daily range): BP systolic 92–145; BP diastolic 50–96; PULSE 55–113; RESP 15–25; TEMP 97.4–98.8; O2SAT 94–100
[2024-12-24 05:19] LABS: BASOPHILS % 0.4 % (0.0-1.0); EOSINOPHILS % 1.7 % (0.0-6.0); LYMPHOCYTES % 21.8 % (18.0-39.1); MONOCYTES % 6.9 % (4.4-11.3); NEUTROPHILS % 68.5 % (38.7-80.0); RED CELL DISTRIBUTION WIDTH 18.6 % (11.7-14.4)
[2024-12-24 05:47] LABS: % IRON SATURATION 12.0 % (15-50); EST GLOMERULAR FILTRATION RATE 44.0 ML/MIN (>=60)
[2024-12-24] MEDS: HYDROCODONE/APAP 5MG-325MG TAB PO PRN (17:15)
[2024-12-24] MEDS: ENOXAPARIN SOD INJ 40 MG/0.4 ML SYR SC SCH (17:44)
[2024-12-25] VITALS (9 sets, daily range): BP systolic 91–139; BP diastolic 49–83; PULSE 66–112; RESP 11–22; TEMP 98–98.1; O2SAT 91–100
[2024-12-25] MEDS: CYANOCOBALAMIN INJ 1,000 MCG/ML VIAL IM ONE (01:34)
[2024-12-25 04:45] LABS: BASOPHILS % 0.3 % (0.0-1.0); EOSINOPHILS % 2.4 % (0.0-6.0); LYMPHOCYTES % 27.5 % (18.0-39.1); MONOCYTES % 7.2 % (4.4-11.3); NEUTROPHILS % 62.0 % (38.7-80.0); RED CELL DISTRIBUTION WIDTH 18.7 % (11.7-14.4)
[2024-12-25 05:13] LABS: EST GLOMERULAR FILTRATION RATE 48.0 ML/MIN (>=60)
[2024-12-25] MEDS: IRON SUCROSE 100 MG in SODIUM CHLORIDE 0.9% 100 ML IV SCH (08:19)
[2024-12-25] MEDS ORDERED: FEOSOL325 MG PO (13:59)
[2024-12-25] MEDS ORDERED: METOPROLOL TARTRATE 25 MG TAB PO SCH (17:00)
[2024-12-26] MEDS ORDERED: CYANOCOBALAMIN INJ 1,000 MCG/ML VIAL IM SCH (09:00)
== END 2024-12-25 14:52 | disposition home health service (06) | DRG 291 ==
LOC: ER 14:36 → ERHOLD 17:56 → MED/SURG3 22:09 → ICU 12-19 17:25
PROVIDERS: ADMIT Internal Medicine; ATTEND Internal Medicine
PROC: 4A133R1 Monitoring of Arterial Saturation, Peripheral, Percutaneous Approach (ICD-10-PCS; principal; 2024-12-19)
DX: I13.0 Hypertensive heart and chronic kidney disease with heart failure and stage 1 through stage 4 chronic kidney disease, or unspecified chronic kidney disease (principal); I50.43 Acute on chronic combined systolic (congestive) and diastolic (congestive) heart failure; J96.21 Acute and chronic respiratory failure with hypoxia; J96.22 Acute and chronic respiratory failure with hypercapnia; N17.9 Acute kidney failure, unspecified; E66.2 Morbid (severe) obesity with alveolar hypoventilation; I27.23 Pulmonary hypertension due to lung diseases and hypoxia; I27.22 Pulmonary hypertension due to left heart disease; E11.22 Type 2 diabetes mellitus with diabetic chronic kidney disease; I48.0 Paroxysmal atrial fibrillation; D50.9 Iron deficiency anemia, unspecified; D51.9 Vitamin B12 deficiency anemia, unspecified; I44.7 Left bundle-branch block, unspecified; N18.30 Chronic kidney disease, stage 3 unspecified; E03.9 Hypothyroidism, unspecified; I44.0 Atrioventricular block, first degree; J44.9 Chronic obstructive pulmonary disease, unspecified; E78.5 Hyperlipidemia, unspecified; E87.70 Fluid overload, unspecified; K40.90 Unilateral inguinal hernia, without obstruction or gangrene, not specified as recurrent; N50.89 Other specified disorders of the male genital organs; I25.10 Atherosclerotic heart disease of native coronary artery without angina pectoris; Z68.38 Body mass index [BMI] 38.0-38.9, adult; Z79.02 Long term (current) use of antithrombotics/antiplatelets; Z79.82 Long term (current) use of aspirin; Z79.84 Long term (current) use of oral hypoglycemic drugs; Z79.890 Hormone replacement therapy; Z96.0 Presence of urogenital implants; Z95.5 Presence of coronary angioplasty implant and graft; Z95.1 Presence of aortocoronary bypass graft; F17.200 Nicotine dependence, unspecified, uncomplicated
CPT/HCPCS: 36415; 36600; 71045; 71250; 74176; 78580; 80048; 80053; 80061; 82607; 82746; 82805; 82948; 83036; 83540; 83735; 83880; 84443; 84466; 84484; 85025; 85045; 85379; 93005; 93306; 93970; 94640; 94660; 94760; 94799; 96372; 99252; 99284; A9540; J0696; J1650; J1756; J1938; J1940; J2470; J3420; J7030; J7050